=== PATIENT | female | born 1990 | race Caucasian/White ===

== ENCOUNTER → 2017-08-30 | Emergency (ER) | payer OTHER ==
[~2017-08-30] VITALS: Ht 165.1 cm; Wt 74.4 kg
[~2017-08-30] MED LIST: OMEPRAZOLE40 MG PO; PEPCID40 MG PO; ZOFRAN4 MG PO
== END | disposition left against medical advice (07) ==
LOC: ER 16:58
DX: R10.13 Epigastric pain (principal)

== ENCOUNTER 2018-10-17 08:20 | Inpatient (IN) | payer OTHER ==
[~2018-10-17] VITALS: Ht 160 cm; Wt 64.4 kg
[2018-10-20] MEDS ORDERED: HYOSCYAMINE0.125 M1 SL (09:11)
[2018-10-20] MEDS ORDERED: OXYC1TAB9 PO (09:11)
== END 2018-10-20 10:54 | disposition home or self-care (01) | DRG 418 ==
LOC: ER 08:20 → SURH 10-18 18:01
PROVIDERS: ADMIT Surgery
PROC: 0FT44ZZ Resection of Gallbladder, Percutaneous Endoscopic Approach (ICD-10-PCS; principal; 2018-10-18)
PROC: CF1C1ZZ Planar Nuclear Medicine Imaging of Hepatobiliary System, All using Technetium 99m (Tc-99m) (ICD-10-PCS; 2018-10-18)
DX: K80.10 Calculus of gallbladder with chronic cholecystitis without obstruction (principal); A92.8 Other specified mosquito-borne viral fevers; K29.70 Gastritis, unspecified, without bleeding

== ENCOUNTER 2022-07-22 04:27 | Emergency (ER) | payer OTHER ==
[~2022-07-22] VITALS: Ht 165.1 cm; Wt 90.7 kg
[~2022-07-22 04:27] MED LIST changes: +HYOSCYAMINE0.125 M1 SL; +OXYC1TAB9 PO
== END 2022-07-22 06:45 | disposition home or self-care (01) ==
LOC: ER 04:27
DX: S93.402A Sprain of unspecified ligament of left ankle, initial encounter (principal); W01.198A Fall on same level from slipping, tripping and stumbling with subsequent striking against other object, initial encounter; Y93.9 Activity, unspecified; Y92.29 Other specified public building as the place of occurrence of the external cause; Y99.9 Unspecified external cause status

== ENCOUNTER 2022-08-30 18:28 | Emergency (ER) | payer OTHER ==
[~2022-08-30] VITALS: Ht 165.1 cm; Wt 89.8 kg
== END 2022-08-30 20:35 | disposition home or self-care (01) ==
LOC: ER 18:28
DX: J06.9 Acute upper respiratory infection, unspecified (principal); Z20.822 Contact with and (suspected) exposure to COVID-19